=== PATIENT | male | born 1990 | race Caucasian/White ===

== ENCOUNTER 2017-08-15 09:20 | Emergency (ER) | payer OTHER ==
--- NOTE | 2017-08-15 10:36 | ED GENERAL ADULT ---
History of Present Illness General Chief Complaint: General Adult Stated Complaint: "EXPOSED TO CARBON MONOXIDE" X 3MNTHS Source: patient Exam Limitations: no limitations Vital Signs & Intake/Output Vital Signs & Intake/Output Vital Signs Date Time Temp Pulse Resp B/P B/P Pulse O2 O2 Flow FiO2 Mean Ox Delivery Rate 08/15 1104 Room Air Room Air 08/15 0930 98.5 100 18 146/95 99 Room Air Allergies Coded Allergies: Penicillins (Intermediate, "I THINK I WOULD " "MAYBE HIVES" 08/15/17) Triage Note: 27M TO ED WITH SIG OTHER FOR REPORTED CARBON MONOXIDE POISONING XMONTHS AFTER FURNACE BROKE. [facility] CAME TO CHECK IT OUT AND TOLD THEM IT HAS BEEN LEAKING CARBON MONOXIDE FOR MONTHS. PT REPORTS SUBECTIVE CONFUSION, ANXIETY, INABILITY TO WORK AND VISUAL HALLUCINATIONS. PT ALSO THINKS HE HAS BEEN SLURRING HIS WORDS. SPEECH CLEAR, ORGANIZED AND MENTATION APPROPRIATE IN TRIAGE Triage Nurses Notes Reviewed? yes Onset: Gradual Duration: 3 MONTHS Timing: no prior history Injury Environment: home Severity: moderate No Modifying Factors: none HPI: Patient is a 27-year-old male with no medical history presenting to the emergency department with significant other with chief complaint of questionable carbon monoxide exposure. Patient reports that he felt intermittent confusion, paranoia, difficulty speaking at times for the past 3 months. Fundi today that his furnace is broken. They decided to come in for evaluation of their symptoms. Patient has not sought medical attention prior to this day. Patient denies any fevers or chills chest pain or shortness of breath. Patient denies any rashes or skin changes.does report heavy smoking history over the past 6 months to one year. Recently quit 1 week ago. Past History Travel History Traveled to [place] past 21 day No Medical History Any Pertinent Medical History? see below for history Neurological: NONE EENT: NONE Cardiovascular: NONE Respiratory: NONE Gastrointestinal: NONE Hepatic: NONE Renal: NONE Musculoskeletal: NONE Psychiatric: NONE Endocrine: NONE Surgical History Surgical History: non-contributory Psychosocial History What is your primary language [place]i Tobacco Use: Quit <30 days ago ETOH Use: occasional use Family History Hx Contributory? No Review of Systems Review of Systems Constitutional: Reports: see HPI, malaise. Comments Review of systems: See HPI, All other systems negative. Constitutional, no chills fever or weight loss HEENT: No visual changes no sore throat no congestion Cardiovascular: No chest pain ,palpitation , orthopnea or ankle swelling Skin, no jaundice no rashes Respiratory: No dyspnea cough sputum or hemoptysis GI: no vomiting : No dysuria No hematuria Muscle skeletal: no back pain, no neck pain, Neurologic: No numbness Psych: Positive stress and anxiety Heme/endocrine: No bruising no bleeding no polyuria or polydipsia Immunology: No splenectomy or history of AIDS Physical Exam Physical Exam General Appearance: well developed/nourished, no apparent distress, alert, awake , comfortable Comments: Well-developed well-nourished person in no acute distress HEENT: Normal EENT exam, extraocular motion intact, no nystagmus. Pupils equally round and reactive to light and accommodation. Nose is atraumatic. External auditory canal and Tympanic membranes clear. Pharynx normal. No swelling or edema. Neck: Supple, full range of motion. Cardiovascular: Regular rate and rhythms no murmurs rubs or gallops, normal JVP Respiratory: Chest nontender. No respiratory distress.breath sounds clear to auscultation bilaterally Extremity: No edema, full range of motion of all extremities without difficulty or pain. Neuro: Alert oriented x3, motor sensory normal, cranial nerves II through XII grossly intact. Skin: No appreciable rash on exposed skin, skin is warm and dry. Psych: Mood and affect is normal, memory and judgment is normal. Core Measures ACS in differential dx? No CVA/TIA Diagnosis: No Sepsis Present: No Sepsis Focused Exam Completed? No Progress Differential Diagnoses I considered the following diagnoses in my evaluation of the patient: Carbon monoxide exposure, anxiety, depression Plan of Care: Orders Procedure Date/time Status MIXED VENOUS BLOOD GAS (GEN) 08/15 1039 Complete Laboratory Tests 08/15/17 1100: Bicarbonate Actual 29 H, Mixed VBG pH 7.37, Mixed VBG pCO2 51, Mixed VBG O2 Saturation 22 L, Carboxyhemoglobin 4.8, O2 Concentration % RA, O2 Delivery Method RA, Phlebotomy Draw Site RAC Patient informed of negative level. Patient was recently heavy smoker. Likely causes of flank elevations in carboxyhemoglobin level. Patient will stay home and fell carbon monoxide detector. Initial ED EKG: none Departure Departure Time of Disposition: 1124 Disposition: HOME OR SELF CARE Condition: Stable Clinical Impression Primary Impression: Carbon monoxide exposure Referrals: Unknown (PCP/Family) Additional Instructions: Follow-up with your primary care physician in the next 5-7 days, call to make appointment. Return for worsening symptoms or concerns. Do not go back into the house until issues are fixed and bUy a carbon monoxide detector. Departure Forms: Customer Survey General Discharge Information Critical Care Note Critical Care Note Critical Care Time: non-applicable
[2017-08-15 11:32] VITALS: BP 120/62
== END 2017-08-15 11:35 ==
LOC: ERH 09:20
DX: Z77.028 Contact with and (suspected) exposure to other hazardous aromatic compounds (principal)